=== PATIENT | female | born 2000 ===

== ENCOUNTER 2022-02-21 13:18 | Emergency (ER) | payer SELFPAY ==
[2022-02-21 14:04] VITALS: BP 126/67
[2022-02-21 15:43] LABS: Basophils % (Auto) 0.5 % (0.0-1.8); Eosinophils # (Auto) 0.1 K/mm3 (0.0-0.4); Eosinophils % (Auto) 0.7 % (0.0-4.3); Hematocrit 37.6 % (30.3-42.9); Hemoglobin 12.8 gm/dl (10.1-14.3); Lymphocytes # (Auto) 2.9 K/mm3 (1.2-5.4); Lymphocytes % (Auto) 35.1 % (13.4-35.0); Mean Corpuscular HGB Conc 34 % (30-34); Mean Corpuscular Volume 86 fl (79-97); Monocytes # (Auto) 0.5 K/mm3 (0.0-0.8); Monocytes % (Auto) 5.5 % (0.0-7.3); Platelet Count 193 K/mm3 (140-440); Red Blood Count 4.34 M/mm3 (3.65-5.03)
[2022-02-21 16:52] LABS: Mucus,Urine 3+ /HPF
--- NOTE | 2022-02-21 17:40 | Emergency Department Report ---
ED Female HPI - General Chief complaint: Vaginal Bleeding Stated complaint: POSSIBLE Source: patient Mode of arrival: Ambulatory Limitations: No Limitations - History of Present Illness Initial comments: Patient is a A1 21-year-old -Stateless female who presents to the ED with complaint of acute onset diffuse low abdominal pain with intermittent nausea and vomiting for the last 1 week. Patient states that she had a positive home based urine test 5 days ago and wanted to confirm the same. Patient also complains of persistent urinary frequency and urgency. Patient denies fever, chills, diarrhea, dizziness, syncope, vaginal bleeding, vaginal discharge, low back pain, chest pain or shortness of breath, cough, sore throat, headache or lightheadedness. MD Complaint: pelvic pain, other (Possibly ) -: Sudden, days(s) (5) Location: suprapubic Radiation: non-radiating Severity: moderate Severity scale (0 -10): 6 Quality: cramping, dull Consistency: intermittent Improves with: none Worsens with: none Are you Now?: Yes (Home with positive test) Associated Symptoms: denies other symptoms, abdominal pain, nausea/vomiting. denies: vaginal discharge, vaginal bleeding, fever/chills, headaches, loss of appetite, dysuria, hematuria, seizure, shortness of breath, syncope, weakness - Related Data Sexually active: Yes : 2 Para: 1 A: 1 Previous Rx's Medication Instructions Recorded Last Taken Type Ibuprofen [Motrin] 800 mg PO Q8HR PRN #30 tablet 02/21/22 Unknown Rx Ondansetron [Zofran Odt] 4 mg PO Q8HR PRN #15 tab.rapdis 02/21/22 Unknown Rx cephALEXin [Keflex] 500 mg PO Q8HR #30 cap 02/21/22 Unknown Rx Allergies Allergy/AdvReac Type Severity Reaction Status Date / Time No Known Allergies Allergy Unverified 02/21/22 14:05 ED Review of Systems ROS: Stated complaint: POSSIBLE Other details as noted in HPI Constitutional: denies: chills, fever Eyes: denies: eye pain, eye discharge, vision change ENT: denies: ear pain, throat pain Respiratory: denies: cough, shortness of breath, wheezing Cardiovascular: denies: chest pain, palpitations Endocrine: no symptoms reported Gastrointestinal: abdominal pain, nausea, vomiting. denies: diarrhea Genitourinary: denies: urgency, dysuria, discharge Musculoskeletal: denies: back pain, joint swelling, arthralgia Skin: denies: rash, lesions Neurological: denies: headache, weakness, paresthesias Psychiatric: denies: anxiety, depression Hematological/Lymphatic: denies: easy bleeding, easy bruising ED Past Medical Hx - Past Medical History Previous Medical History?: No - Surgical History Past Surgical History?: No - Medications Home Medications: Home Medications Medication Instructions Recorded Confirmed Last Taken Type Ibuprofen [Motrin] 800 mg PO Q8HR PRN #30 tablet 02/21/22 Unknown Rx Ondansetron [Zofran Odt] 4 mg PO Q8HR PRN #15 tab.rapdis 02/21/22 Unknown Rx cephALEXin [Keflex] 500 mg PO Q8HR #30 cap 02/21/22 Unknown Rx ED Physical Exam - General Limitations: No Limitations General appearance: alert, in no apparent distress - Head Head exam: Present: atraumatic, normocephalic, normal inspection - Eye Eye exam: Present: normal appearance, PERRL, EOMI Pupils: Present: normal accommodation - ENT ENT exam: Present: normal exam, normal orophraynx, mucous membranes moist, TM's normal bilaterally, normal external ear exam - Neck Neck exam: Present: normal inspection, full ROM. Absent: tenderness - Respiratory Respiratory exam: Present: normal lung sounds bilaterally. Absent: respiratory distress, wheezes, rales, rhonchi, chest wall tenderness, accessory muscle use, decreased breath sounds, prolonged expiratory - Cardiovascular Cardiovascular Exam: Present: regular rate, normal rhythm, normal heart sounds. Absent: systolic murmur, diastolic murmur, rubs, gallop - GI/Abdominal GI/Abdominal exam: Present: soft, normal bowel sounds. Absent: tenderness, guarding, rebound, hyperactive bowel sounds, hypoactive bowel sounds, organomegaly - Extremities Exam Extremities exam: Present: normal inspection, full ROM, normal capillary refill. Absent: tenderness - Back Exam Back exam: Present: normal inspection, full ROM. Absent: tenderness, CVA tenderness (R), CVA tenderness (L), muscle spasm, paraspinal tenderness, vertebral tenderness - Neurological Exam Neurological exam: Present: alert, oriented X3, CN II-XII intact, normal gait, reflexes normal - Psychiatric Psychiatric exam: Present: normal affect, normal mood - Skin Skin exam: Present: warm, dry, intact, normal color. Absent: rash ED Course Vital Signs 02/21/22 13:40 Temperature 98.1 F Pulse Rate 68 Respiratory 16 Rate Blood Pressure 126/67 [Left] O2 Sat by Pulse 100 Oximetry ED Medical Decision Making - Lab Data Result diagrams: 02/21/22 15:13 - Medical Decision Making This is a A1 21-year-old -Stateless female who presents to the ED with complaint of acute onset diffuse low abdominal pain with intermittent nausea and vomiting for the last 1 week. Patient states that she had a positive home based urine test 5 days ago and wanted to confirm the same. Patient also complains of persistent urinary frequency and urgency. In the ED, patient is alert and oriented x3 and is not in any distress. Patient is hemodynamically stable. Lab test results were reviewed and showed a negative hCG quant, but urinalysis showed significant urinary tract infection. Patient was therefore discharged home on medications and advised to follow-up with her primary care physician or [facility] physician in 5 to 7 days for reevaluation. Patient was advised to return to the ED immediately if symptoms get worse. - Differential Diagnosis ; viral gastroenteritis; UTI; ovarian cyst; GERD Critical care attestation.: If time is entered above; I have spent that time in minutes in the direct care of this critically ill patient, excluding procedure time. ED Disposition Clinical Impression: Abdominal pain in female patient, Acute urinary tract infection Disposition: HOME / SELF CARE / HOMELESS Is pt being admited?: No Does the pt Need Aspirin: No Condition: Stable Instructions: Abdominal Pain, Adult, [id number], Urinary Tract Infection, Adult, [id number] Additional Instructions: All lab test results were reviewed and are all nonactionable. Your test was negative. Therefore take medication with food, drink plenty of fluids and follow-up with your primary care physician in 5 to 7 days for reevaluation or return to the ED immediately if symptoms get worse. Prescriptions: cephALEXin [Keflex] 500 mg PO Q8HR #30 cap Ibuprofen [Motrin] 800 mg PO Q8HR PRN #30 tablet PRN Reason: Pain , Severe (7-10) Ondansetron [Zofran Odt] 4 mg PO Q8HR PRN #15 tab.rapdis PRN Reason: Nausea Referrals: [facility] [Provider Group] - 7-10 days Time of Disposition: 17:41 Print Language: BHUTANESE
[2022-02-21 18:03] LABS: Bilirubin,Urine Negative (Negative); Blood,Urine Negative (Negative); Color,Urine Yellow (Yellow); Protein,Urine <15 mg/dL mg/dL (Negative)
[2022-02-21 18:04] LABS: Urobilinogen,Urine < 2.0 mg/dL (<2.0)
== END 2022-02-21 16:00 | disposition home or self-care (01) ==
LOC: ED 13:18
DX: N39.0 Urinary tract infection, site not specified (principal); R10.9 Unspecified abdominal pain
CPT/HCPCS: 36415; 81001; 84702; 85025; 86900; 86901; 87086; 99283